=== PATIENT | male | born 1955 | race Caucasian/White ===

== ENCOUNTER 2020-11-25 11:47 | Emergency (ER) | payer OTHER ==
[~2020-11-25] VITALS: Ht 185.4 cm; Wt 95.3 kg
[2020-11-25] MEDS ORDERED: MEDROLDOSEPACK PO (13:47)
[2020-11-25 14:30] VITALS: BP 132/80
== END 2020-11-25 14:31 | disposition home or self-care (01) ==
LOC: ER 11:47
DX: R21 Rash and other nonspecific skin eruption (principal)